=== PATIENT | female | born 1940 | race Caucasian/White ===

== ENCOUNTER → 2019-06-12 | Outpatient (CLI) | payer MEDICARE, OTHER ==
--- NOTE | 2019-06-12 19:21 | XCELERA REPORT ---
[address] [place] [facility] [address] Lower Extremity Venous Evaluation Procedure: Color flow and duplex imaging of the veins of the left lower extremity as well as the right Common Femoral vein. Right Sided Venous Evaluation The right common femoral vein is fully compressible. Spontaneous and phasic flow is present in the right common femoral vein. Left Sided Venous Evaluation Normal vessel filling wall to wall, compression and augmentation as well as Colour flow down to the infrageniculate veins. Interpretation Summary No duplex evidence of DVT or obstruction in the left lower extremity nor in the right Common Femoral vein. Name: DEANDRA ALLEN Age: 78 yrs Gender: Female : 1940 Patient Status: Outpatient Patient Location: Study Date: 06/12/2019 02:06 PM Reason For Study: KAMERON ROTHMAN Ordering Physician: SEEMA MOYA Performed By: Chino Koenig : SEEMA MOYA > Kevin Love
== END ==
LOC: SP 13:44
PROVIDERS: ATTEND Podiatrist Foot & Ankle Surgery
DX: I82.409 Acute embolism and thrombosis of unspecified deep veins of unspecified lower extremity (principal)
CPT/HCPCS: 93971